=== PATIENT | male | born 1965 | race Caucasian/White ===

== ENCOUNTER 2021-11-21 12:53 | Inpatient (IN) | payer OTHER ==
[~2021-11-21] VITALS: Ht 185.4 cm; Wt 100.0 kg
[~2021-11-21 12:53] MED LIST: AMIODARONE HCL200 MG PO; DIOVAN 80 MG TA80 MG PO; METOPROLOL TART25 MG PO; TOPROL XL25 MG PO; TYLENOL325 MG PO; VALSARTAN320 MG PO; WARFARIN SODIUM3 MG PO
[2021-11-21 13:19] LABS: HEMOGLOBIN 14.8 gm/dl (14.0-17.5); RED BLOOD COUNT 5.39 M/UL (4.20-5.50); WHITE BLOOD COUNT 10.3 K/UL (4.5-11.0)
[2021-11-21 13:47] LABS: BUN/CREATININE RATIO 24 (0-10)
[2021-11-21] MEDS ORDERED: AMIODARONE HCL200 MG PO (15:28)
[2021-11-21] MEDS ORDERED: VALSARTAN80 MG PO (15:28)
[2021-11-22 01:28] LABS: HEMOGLOBIN 15.1 gm/dl (14.0-17.5); RED BLOOD COUNT 5.54 M/UL (4.20-5.50)
[2021-11-22 01:52] LABS: WHITE BLOOD COUNT 14.6 K/UL (4.5-11.0)
[2021-11-23 03:17] LABS: HEMOGLOBIN 14.9 gm/dl (14.0-17.5); RED BLOOD COUNT 5.37 M/UL (4.20-5.50); WHITE BLOOD COUNT 17.8 K/UL (4.5-11.0)
[2021-11-23] MEDS ORDERED: MULTAQ 400 MG400 MG PO (17:01)
[2021-11-23] MEDS ORDERED: TAPAZOLE 10 MG10 MG PO (17:01)
[2021-11-23] MEDS ORDERED: INDERAL TAB 4040 MG PO (17:01)
[2021-11-24 01:28] LABS: HEMOGLOBIN 15.9 gm/dl (14.0-17.5); RED BLOOD COUNT 5.72 M/UL (4.20-5.50); WHITE BLOOD COUNT 17.6 K/UL (4.5-11.0)
== END 2021-11-24 02:41 | disposition expired | DRG 260 ==
LOC: ER1 12:53 → CDU 14:43 → PROG CARE 16:29
PROVIDERS: Emergency Medicine; Internal Medicine; Physician Assistant; ADMIT Internal Medicine
PROC: 5A2204Z Restoration of Cardiac Rhythm, Single (ICD-10-PCS; 2021-11-23)
PROC: 02HK3JZ Insertion of Pacemaker Lead into Right Ventricle, Percutaneous Approach (ICD-10-PCS; principal; 2021-11-24)
PROC: 5A1223Z Performance of Cardiac Pacing, Continuous (ICD-10-PCS; 2021-11-24)
PROC: 3E043XZ Introduction of Vasopressor into Central Vein, Percutaneous Approach (ICD-10-PCS; 2021-11-24)
PROC: 0BH17EZ Insertion of Endotracheal Airway into Trachea, Via Natural or Artificial Opening (ICD-10-PCS; 2021-11-24)
PROC: 5A1935Z Respiratory Ventilation, Less than 24 Consecutive Hours (ICD-10-PCS; 2021-11-24)
DX: I48.0 Paroxysmal atrial fibrillation (principal); K72.00 Acute and subacute hepatic failure without coma; I50.23 Acute on chronic systolic (congestive) heart failure; Z20.822 Contact with and (suspected) exposure to COVID-19; R57.0 Cardiogenic shock; N17.9 Acute kidney failure, unspecified; I11.0 Hypertensive heart disease with heart failure; I44.2 Atrioventricular block, complete; I49.3 Ventricular premature depolarization; I95.9 Hypotension, unspecified; F17.220 Nicotine dependence, chewing tobacco, uncomplicated; R79.1 Abnormal coagulation profile; I71.9 Aortic aneurysm of unspecified site, without rupture; E05.80 Other thyrotoxicosis without thyrotoxic crisis or storm; I08.1 Rheumatic disorders of both mitral and tricuspid valves; E86.0 Dehydration; Z79.01 Long term (current) use of anticoagulants; Z95.2 Presence of prosthetic heart valve; Z82.49 Family history of ischemic heart disease and other diseases of the circulatory system; Z83.3 Family history of diabetes mellitus; Z91.14 Patient's other noncompliance with medication regimen
CPT/HCPCS: 31500; 33210; 36415; 71045; 80048; 80053; 82550; 82553; 82962; 83605; 83735; 83880; 84439; 84443; 84481; 84484; 85025; 85610; 85730; 92950; 93005; 94002; 94664; 94760; 99285; J0171; J0461; J1200; J1644; J1940; J2001; J2250; J2270; J3475; J7040; J7070; U0002